=== PATIENT | male | born 1960 | race Caucasian/White ===

== ENCOUNTER → 2016-12-08 | Outpatient (CLI) | payer OTHER ==
--- NOTE | 2016-12-08 13:43 | US ---
EXAMINATION TYPE: US venous doppler duplex LE BI DATE OF EXAM: 12/08/2016 1:25 PM COMPARISON: US right lower extremity July 26, 2013 CLINICAL HISTORY: R60.0 JUDD LE EDEMA, M79.604 PAIN IN RT LEG,R29.898 LEG WEAKN. SIDE PERFORMED: Bilateral TECHNIQUE: The lower extremity deep venous system is examined utilizing real time linear array sonog tonny with graded compression, doppler sonography and color-flow sonography. VESSELS IMAGED: External Iliac Vein (EIV) Common Femoral Vein Deep Femoral Vein Greater Saphenous Vein * Femoral Vein Popliteal Vein Small Saphenous Vein * Proximal Calf Veins (* superficial vessels) Right Leg: Negative for DVT Left Leg: Negative for DVT Grayscale, color doppler, spectral doppler imaging performed of the deep veins of the lower extremiti es. There is normal flow, compressibility, vascular waveforms bilaterally IMPRESSION: No ultrasound evidence for acute DVT in either lower extremity.
== END | disposition home or self-care (01) ==
LOC: RADUSWWP 13:02
PROVIDERS: ATTEND Family Medicine
DX: R60.0 Localized edema (principal); M79.604 Pain in right leg; M62.81 Muscle weakness (generalized)
CPT/HCPCS: 93005; 93970

== ENCOUNTER → 2016-12-10 | Outpatient (CLI) | payer OTHER ==
--- NOTE | 2016-12-11 19:14 | MR ---
MRI brain with and without contrast HISTORY: Testicular carcinoma, dizziness and hearing loss Multiplanar multisequence and postcontrast images through the brain following 20 cc MultiHance IV Correlation to prior MRI brain dated 26 January 2012 There is no restricted diffusion. There is cortical atrophy again noted. The corpus callosum, pituita ry, cervical medullary junction, cerebellopontine angles are stable. Vascularity is within normal spicer its. Normal vascular flow voids and enhancement. The orbits show symmetric appearance. Mild inflammat ory change again noted within the maxillary sinuses, ethmoid air cells. There is no hemorrhage or hyd rocephalus. Brain signal is stable. No abnormal enhancement. Mild inflammatory change in the mastoids as on prior IMPRESSION: No acute abnormality, no significant interval change. Degenerative change is mild and sta ble.
== END | disposition home or self-care (01) ==
LOC: RADMRIMAIN 21:43
PROVIDERS: ATTEND Psychiatry & Neurology Neurology
DX: G31.9 Degenerative disease of nervous system, unspecified (principal); D49.6 Neoplasm of unspecified behavior of brain
CPT/HCPCS: 70553; A9577

== ENCOUNTER → 2016-12-24 | Outpatient (CLI) | payer OTHER ==
--- NOTE | 2016-12-24 11:02 | ECHOF ---
Referral Reason:R60.0 sunny lower ext edema M79.604 pain in rt leg MEASUREMENTS -------- HEIGHT: 182.9 cm WEIGHT: 106.6 kg BP: 126/58 IVSd: 1.0 cm (0.6 - 1.1) LVIDd: 4.8 cm (3.9 - 5.3) LVPWd: 1.2 cm (0.6 - 1.1) IVSs: 1.4 cm LVIDs: 2.8 cm LVPWs: 2.1 cm Ao Diam: 2.9 cm (2.0 - 3.7) AV Cusp: 2.4 cm (1.5 - 2.6) LA Diam: 3.1 cm (2.7 - 3.8) MV EXCURSION: 19.783 mm (> 18.000) MV EF SLOPE: 113 mm/s (70 - 150) EPSS: 0.6 cm MV E Bryon: 0.81 m/s MV DecT: 209 ms MV A Bryon: 0.94 m/s MV E/A Ratio: 0.86 RAP: 5.00 mmHg RVSP: 13.79 mmHg FINDINGS -------- Sinus rhythm. This was a technically good study. There is borderline concentric left ventricular hypertrophy. Overall left ventricular systolic function is normal with, an EF between 55 - 60 %. The right ventricle is normal in size. The left atrium is normal in size. The right atrium is normal in size. The aortic valve is trileaflet, and appears structurally normal. No aortic stenosis or regurgitation. The mitral valve leaflets are mildly thickened. Mild mitral regurgitation is present. Trace tricuspid regurgitation present. The right ventricular systolic pressure, as measured by Doppler, is 13.79mmHg. Pulmonic valve appears structurally normal. The aortic root size is normal. The pericardium is normal. CONCLUSIONS -------- 1. Sinus rhythm. 2. Mild mitral regurgitation is present. 3. Trace tricuspid regurgitation present. 4. The right ventricular systolic pressure, as measured by Doppler, is 13.79mmHg. 5. Pulmonic valve appears structurally normal. 6. The aortic root size is normal. 7. The pericardium is normal. 8. This was a technically good study. 9. There is borderline concentric left ventricular hypertrophy. 10. Overall left ventricular systolic function is normal with, an EF between 55 - 60 %. 11. The right ventricle is normal in size. 12. The left atrium is normal in size. 13. The right atrium is normal in size. 14. The aortic valve is trileaflet, and appears structurally normal. No aortic stenosis or regurgitation. 15. The mitral valve leaflets are mildly thickened. [employer] MACHINE TENDER: Janel Trevino RDCS
== END | disposition home or self-care (01) ==
LOC: RADECHMAIN 08:26
PROVIDERS: ATTEND Nurse Practitioner Family
DX: I08.1 Rheumatic disorders of both mitral and tricuspid valves (principal); R60.0 Localized edema; R29.898 Other symptoms and signs involving the musculoskeletal system; M79.604 Pain in right leg
CPT/HCPCS: 93306

== ENCOUNTER → 2019-07-20 | Outpatient (CLI) | payer OTHER ==
--- NOTE | 2019-07-20 12:00 | US ---
EXAMINATION TYPE: US kidneys/renal and bladder DATE OF EXAM: 07/20/2019 COMPARISON: NONE CLINICAL HISTORY: N28.1 RENAL CYST LT. Renal cyst EXAM MEASUREMENTS: Right Kidney: 11.8 x 4.6 x 4.7 cm Left Kidney: 10.8 x 5.8 x 4.8 cm Right Kidney: No hydronephrosis or masses seen Left Kidney: Cystic area upper pole measuring 3.1x 3.0 x 2.8 cm. Bladder: Hypoechoic area seen inferior measuring 3.0 x 2.1 x 2.2 cm. Inferior wall 1 cm. Bilateral Jets seen: Yes There is no evidence for hydronephrosis at this point in time. No nephrolithiasis is seen. Bilateral ureteral jets are seen. IMPRESSION: Masslike area at the base the bladder may reflect enlarged prostate however underlying lesion is diff icult to exclude. Correlate clinically. Urinary bladder wall thickening noted as well. Simple cyst up per pole left kidney.
[2019-07-20 12:20] LABS: ALT 33 U/L (21-72); AST 33 U/L (17-59); African American GFR (CKD) >90 (>60 ml/min/1.73 sqM); Albumin 4.5 g/dL (3.5-5.0); Alkaline Phosphatase 76 U/L (38-126); Anion Gap 6 mmol/L; Blood Urea Nitrogen 15 mg/dL (9-20); Calcium 9.9 mg/dL (8.4-10.2); Carbon Dioxide 31 mmol/L (22-30); Chloride 103 mmol/L (98-107); Cholesterol 207 mg/dL (<200); Glucose 87 mg/dL (74-99); HDL Cholesterol 53 mg/dL (40-60); LDL Cholesterol,Calculated 128 mg/dL (0-99); Non-African American GFR(CKD) >90 (>60 ml/min/1.73 sqM); Potassium 4.6 mmol/L (3.5-5.1); Sodium 140 mmol/L (137-145); Total Bilirubin 0.8 mg/dL (0.2-1.3); Total Protein 7.5 g/dL (6.3-8.2); Triglycerides 131 mg/dL (<150)
== END | disposition home or self-care (01) ==
LOC: RADUSWWP 10:49
PROVIDERS: ATTEND Family Medicine
DX: N28.1 Cyst of kidney, acquired (principal); R93.49 Abnormal radiologic findings on diagnostic imaging of other urinary organs; R93.41 Abnormal radiologic findings on diagnostic imaging of renal pelvis, ureter, or bladder; Z13.220 Encounter for screening for lipoid disorders; Z12.5 Encounter for screening for malignant neoplasm of prostate; Z79.899 Other long term (current) drug therapy
CPT/HCPCS: 80061; 80053; 76770; 36415; G0103

== ENCOUNTER 2024-02-24 08:46 | Day surgery (SDC) | payer MEDICARE, OTHER ==
[2024-02-24 09:20] VITALS: RESP 18; TEMP 97.7
[2024-02-24 10:45] VITALS: BP 154/82; PULSE 60
--- NOTE | 2024-02-24 15:01 | US ---
EXAMINATION TYPE: US biopsy soft tissue/muscle DATE OF EXAM: 02/24/2024 11:19 AM CLINICAL INDICATION:Male, 63 years old with history of R22.1 LOCALIZED SWELLING, MASS AND LUMP, NECK; COMPARISON: Correlation MRI 12/10/2016 ATTENDING: Dr. Gregory TECHNIQUE: Ultrasound guided percutaneous biopsy of left parotid mass using coaxial method. The patient was mon itored by a qualified trained nurse independent of the Radiologist during sedation. FINDINGS: The procedure was explained to the patient. All questions were answered and informed consent was obta ined. The patient was placed supine and transverse ultrasound images of the left parotid mass were obtained . This is oval, circumscribed and hypoechoic with some internal vascularity measuring 2.8 x 2.8 x 1.3 cm. The overlying skin was marked and prepped using sterile method. Timeout was taken per protocol. Follo wing administration 1% local lidocaine anesthesia, an 18-gauge 6 cm Temno biopsy needle was advanced with needle tip visualized within the mass. Three 18-gauge core biopsies were obtained, placed in formalin solution, and sent to pathology. Fragm entary, brittle tissue was obtained. The needle was removed. Other additional ultrasound scanning shows no abnormal fluid collection or ev ident complication. Hemostasis was obtained and a dressing was placed. Patient was discharged home in stable condition. IMPRESSIONS: Status post ultrasound guided left parotid mass biopsy. Pathology results pending. In retrospect, the mass is partially visualized on the patient's 2017 brain MRI suggesting a benign etiology.
== END 2024-02-24 10:20 | disposition home or self-care (01) ==
LOC: RADPROMAIN 08:46
PROVIDERS: ATTEND Otolaryngology
DX: R22.1 Localized swelling, mass and lump, neck (principal)
CPT/HCPCS: 20206; 76942; 88305

== ENCOUNTER → 2024-04-27 | Outpatient (CLI) | payer MEDICARE, OTHER ==
[~2024-04-27] MED LIST: IODINE/POTASSIUM IODIDE 14 ML BOTTLE ONE
--- NOTE | 2024-05-01 23:40 | NM ---
EXAMINATION TYPE: NM DatScan Brain SPECT DATE OF EXAM: 04/27/2024 COMPARISON: NONE CLINICAL INDICATION: Male, 64 years old with history of R25.1 TREMOR, UNSPECIFIED; TECHNIQUE: 10 drops of Lugol's solution was administered 1 hour prior to injection as a thyroid bloc nila agent. After the administration of 4.43 mCi I-123 Ioflupane DaTscan. Images obtained 3 hours p ost injection. SPECT images of the brain were acquired with axial and coronal reconstructions. FINDINGS: The DaTSCAN demonstrates normal uptake of tracer throughout the striata. Consequently there is no evidence of loss of the pre-synaptic dopaminergic terminals on this investigation IMPRESSION: This normal appearance is against a diagnosis of idiopathic Parkinson?s disease (PD) or a Parkinsonian syndrome (PS) and is seen in healthy individuals and also patients with essential tremor (ET), drug induced parkinsonism, and vascular pseudo-parkinsonism [facility], , 05/01/2024 11:37 PM
== END | disposition home or self-care (01) ==
LOC: RADNMMAIN 10:34
PROVIDERS: ATTEND Psychiatry & Neurology Neurology
DX: R25.1 Tremor, unspecified
CPT/HCPCS: 78803

== ENCOUNTER → 2024-11-01 | Outpatient (CLI) | payer MEDICARE, OTHER ==
--- NOTE | 2024-11-01 11:34 | XR ---
EXAMINATION TYPE: XR chest 2V DATE OF EXAM: 11/01/2024 CLINICAL INDICATION: Male, 64 years old with history of R053 PERSISTENT COUGH, TECHNIQUE: Frontal and lateral views of the chest are obtained. COMPARISON: None FINDINGS: There is no focal air space opacity, pleural effusion, or pneumothorax seen. The cardiac silhouette size is within normal limits. Spine is straightened on lateral view. IMPRESSION: No acute pulmonary process. [facility], , 11/01/2024 11:32 AM
== END | disposition home or self-care (01) ==
LOC: RADXRYALE 10:55
PROVIDERS: ATTEND Nurse Practitioner Family
DX: R05.3 Chronic cough (principal)
CPT/HCPCS: 71046